=== PATIENT | female | born 2005 | race Caucasian/White ===

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

== ENCOUNTER → 2024-06-16 10:27 | Outpatient (BNVA) | payer MEDICAID, SELFPAY | PROVIDERS: PCP Nurse Practitioner Family; Visit Provider Nurse Practitioner Family | DX: R50.9 Fever, unspecified (principal) | CPT/HCPCS: 87426 ==

== ENCOUNTER 2024-09-24 11:47 | Emergency (ER) | payer BC, MEDICAID, SELFPAY ==
--- NOTE | 2024-09-24 11:48 | XR_ITS ---
WS: [id number] Exam: XR chest 1V portable [id number] Date/Time of Exam: 09/24/2024 1:06 PM Reason For Exam: cp No priors. Lungs are clear. Normal cardiomediastinal silhouette and regional bony elements. No pleural effusion. XR/XR chest 1V portable [id number] IMPRESSION: 1. Normal chest.
--- NOTE | 2024-09-24 12:11 | ECG_ITS ---
[facility] Test Date: 2024-09-24 Pat Name: Anni Buchanan [facility] Department: Room: Gender: Female [employer]: : 2005 Requested By: Doron Cuadra Order Number: [id number] Caitlyn MD: Terry Day M.D. Measurements Intervals [place] Rate: 71 P: 82 MN: 135 QRS: 91 QRSD: 85 T: 64 QT: 379 QTc: 413 Interpretive Statements SINUS RHYTHM BORDERLINE RIGHT AXIS DEVIATION [QRS AXIS > 90] NONSPECIFIC T-WAVE ABNORMALITY No previous ECG available for comparison Electronically Signed On 09-24-2024 21:57:05 NURSE COMPANION by Terry Day M.D. [id number]
[2024-09-24 12:17] VITALS: BP 104/70; PULSE 77; RESP 18; TEMP 36.8; O2SAT 99; BMI 18.8
--- NOTE | 2024-09-24 12:55 | ECG_ITS ---
[facility] Date: 2024-09-24 Pat Name: Anni Buchanan [facility] Department: Room: Gender: Female [employer] Winder: : 2005 Requested By: Doron Cuadra Order Number: [id number] Reading MD: Terry Day M.D. Measurements Intervals [place] Rate: 71 P: 82 MD: 135 QRS: 91 QRSD: 85 T: 64 QT: 379 QTc: 413 Interpretive Statements SINUS RHYTHM BORDERLINE RIGHT AXIS DEVIATION [QRS AXIS > 90] NONSPECIFIC T-WAVE ABNORMALITY No previous ECG available for comparison Electronically Signed On 09-24-2024 21:57:00 INTEGRITY SPECIALIST by Terry Day M.D. [id number]
[2024-09-24 12:56] VITALS: BP 112/70; PULSE 75; O2SAT 99
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
[2024-09-24] MEDS: morphine 4 mg/mL SDV 1 mL IVP (13:16)
[2024-09-24] MEDS: lidocaine 2% viscous 15 ML, aluminum-mag hydrox-simethicon 30 ML, sucralfate oral liq 1 GM PO (13:16)
[2024-09-24] MEDS: ondansetron 2 mg/ML SDV 2 mL 4 MG IVP (13:16)
[2024-09-24 13:32] LABS: Basophils % 0.6 %; Eosinophils # 0.2 10^3/uL (0.0-0.8); Eosinophils % 4.1 %; Hematocrit 40.5 % (36-47); Lymphocytes # 1.7 10^3/uL (1.5-6.5); Lymphocytes % 31.5 %; Mean Corpuscular HGB Conc 32.8 g/dL (30-55); Mean Corpuscular Hemoglobin 30.1 pg (27-33); Mean Corpuscular Volume 91.6 fl (85-98); Mean Platelet Volume 11.1 fL (7.4-10.4); Monocytes # 0.6 10^3/uL (0.2-0.9); Monocytes % 10.7 %; Neutrophils # 2.87 10^3/uL (1.8-8.0); Neutrophils % 52.7 %; Nucleated Red Blood Cells % 0 %; Platelet Count 205 10^3/cmm (157-399); Red Blood Count 4.42 10^6/uL (3.85-5.65); Red Cell Distribution Width 12.8 % (12.1-15.1); White Blood Count 5.43 10^3/uL (4.5-13.0)
[2024-09-24 13:47] LABS: INR 1.04 (0.8-1.2)
[2024-09-24 13:48] LABS: HCG, Serum Qual Negative (Negative)
[2024-09-24 13:50] LABS: D Dimer 0.29 ug/mLFEU (0-0.59)
[2024-09-24 13:53] LABS: Alanine Aminotransferase 22 U/L (0-33); Albumin Level 4.4 g/dL (3.5-5.2); Alkaline Phosphatase 96 U/L (35-105); Anion Gap 16.7 (5-19); Aspartate Amino Transferase 17 U/L (0-32); Blood Urea Nitrogen 13 mg/dL (6-20); Calcium 9.1 mg/dL (8.5-10.5); Carbon Dioxide 20 mmol/L (22-29); Chloride 105 mmol/L (98-107); Creatinine Clr Calc Pharmacy 124.6147; Glomerular Filtration Rate 127.5 mL/min (90-130); Glucose 119 mg/dL (65-115); Lipase 94 U/L (13-60); Osmolality Calculated 287 mOsm/kg (285-295); Potassium 3.7 mmol/L (3.5-5.1); Sodium 138 mmol/L (136-145); Total Bilirubin 0.2 mg/dL (0.15-1.2); Total Protein 6.4 g/dL (6.6-8.7)
[2024-09-24 13:55] LABS: Troponin(5th) Baseline < 6 ng/L (0-10)
[2024-09-24 14:15] VITALS: BP 127/60; PULSE 71; O2SAT 97
== END 2024-09-24 14:20 | disposition home or self-care (01) ==
PROVIDERS: Emergency Provider Emergency Medicine; PCP Nurse Practitioner Family
DX: R07.9 Chest pain, unspecified (principal)
CPT/HCPCS: 71045; 80053; 83690; 84484; 84703; 85025; 85378; 85610; 93005; 96374; 96375; 99285; J2270; J2405

== ENCOUNTER 2025-04-18 15:06 | Outpatient (CLI) | payer BC, MEDICAID, SELFPAY ==
--- NOTE | 2025-04-18 15:30 | USR_ITS ---
PROCEDURE INFORMATION: Exam: US Right Limited Joint or Other Non-Vascular Extremity Structure Exam date and time: 04/18/2025 3:16 PM Age: 19 years old Clinical indication: Other: - enlarged lymph node; Additional info: R59.9 - enlarged lymph nodes, unspecified TECHNIQUE: Imaging protocol: US right limited joint or other nonvascular extremity structure. Real-time ultrasound with image documentation. Exam focused on the area of clinical interest. COMPARISON: US OB >= 14 weeks fetus [id number] 03/16/2024 9:38 AM FINDINGS: Soft tissues: There are clustered lymph nodes in the inguinal regions bilaterally measuring up to 9 mm short axis on the right and 11 mm on the left. Lymph nodes demonstrate subtle increased central echogenicity related to central fatty federico and there is marked central vascularity. There is no fluid collection in the soft tissues. US/US soft tissue/extremity [id number] IMPRESSION: Mild bilateral inguinal lymph node enlargement is nonspecific. Findings may be reactive or neoplastic.
== END 2025-04-18 15:07 | disposition home or self-care (01) ==
LOC: RAD 15:09
PROVIDERS: PCP Nurse Practitioner Family; Visit Provider Nurse Practitioner Family
DX: R59.9 Enlarged lymph nodes, unspecified (principal); R10.31 Right lower quadrant pain; R10.32 Left lower quadrant pain
CPT/HCPCS: 76882

== ENCOUNTER 2025-05-12 08:35 | Oncology outpatient (recurring) (ONCR) | payer BC, MEDICAID, SELFPAY ==
[2025-05-12 09:47] LABS: Hematocrit 39.0 % (36-47); Hemoglobin 13.00 g/dL (12.4-14.8); Mean Corpuscular HGB Conc 33.3 g/dL (30-55); Mean Corpuscular Hemoglobin 31.3 pg (27-33); Mean Corpuscular Volume 93.8 fl (85-98); Nucleated Red Blood Cells % 0 %; Platelet Count 182 10^3/cmm (157-399); Red Blood Count 4.16 10^6/uL (3.85-5.65); White Blood Count 6.26 10^3/uL (4.5-13.0)
[2025-05-12 09:50] LABS: Glucose Urine UA Negative (Normal); Nitrate Urine Negative (Negative); Specific Gravity, Urine 1.022 (1.005-1.030)
[2025-05-12 10:25] LABS: Alanine Aminotransferase 60 U/L (0-33); Albumin Level 4.5 g/dL (3.5-5.2); Alkaline Phosphatase 88 U/L (35-105); Anion Gap 12.6 (5-19); Aspartate Amino Transferase 26 U/L (0-32); Blood Urea Nitrogen 6 mg/dL (6-20); Calcium 8.9 mg/dL (8.5-10.5); Carbon Dioxide 26 mmol/L (22-29); Chloride 104 mmol/L (98-107); Cholesterol 110 mg/dL (0-200); Creatinine Clr Calc Pharmacy 147.4818; Globulin 2.6 g/dL (1.3-4.6); Glucose 88 mg/dL (65-115); HDL Cholesterol 43 mg/dL (60-100); Osmolality Calculated 285 mOsm/kg (285-295); Potassium 3.6 mmol/L (3.5-5.1); Sodium 139 mmol/L (136-145); Thyroid Stimulating Hormone 0.95 uIU/mL (0.27-4.20); Total Protein 7.1 g/dL (6.6-8.7); Triglycerides 46 mg/dL (0-150); Uric Acid 3.6 mg/dL (2.4-5.7)
== END 2025-05-12 23:59 | disposition home or self-care (01) ==
PROVIDERS: PCP Nurse Practitioner Family; Visit Provider Internal Medicine
DX: R10.31 Right lower quadrant pain (principal); R10.32 Left lower quadrant pain; R59.0 Localized enlarged lymph nodes
CPT/HCPCS: 36415; 80053; 80061; 81001; 82306; 83615; 84443; 84550; 85025

== ENCOUNTER → 2025-07-06 11:07 | Outpatient (BNVA) | payer BC, MEDICAID, SELFPAY | PROVIDERS: PCP Nurse Practitioner Family; Visit Provider Nurse Practitioner Family | DX: N92.6 Irregular menstruation, unspecified (principal); R59.1 Generalized enlarged lymph nodes | CPT/HCPCS: 80053; 81025; 83615; 84550; 85025 ==

== ENCOUNTER 2025-08-09 10:19 | Oncology outpatient (recurring) (ONCR) | payer BC, MEDICAID, SELFPAY ==
--- NOTE | 2025-08-09 10:15 | US_ITS ---
WS: [id number] Complete ABDOMINAL ULTRASOUND HISTORY: R10.9 - Unspecified abdominal pain COMPARISON: None available. Liver: 13.6 cm in length. Normal size liver and echogenicity. No bile duct dilatation or mass. Portal Vein: Normal hepatopetal flow with monophasic waveform. Gallbladder: Normally distended gallbladder with no stones or wall thickening. CBD: 0.3 cm Pancreas: Normal size and echogenicity. Right kidney: 10.1 cm x 3.9 x 4.6 cm. Cortex:1.2 cm. Normal size and echogenicity. No hydronephrosis or mass. Left kidney: 9.7 cm x 4.6 cm x 5.7 cm. Cortex: 1.2 cm. Normal size and echogenicity. No hydronephrosis or mass. Spleen: 9.5 cm. Normal size and echogenicity. Aorta and IVC: Unremarkable abdominal aorta and IVC. US/US abdomen complete* [id number] Impression: Normal complete abdomen ultrasound.
== END 2025-08-12 23:59 | disposition home or self-care (01) ==
LOC: ONCMED 10:20 → RAD 08-10
PROVIDERS: PCP Nurse Practitioner Family; Visit Provider Internal Medicine
DX: R10.9 Unspecified abdominal pain (principal); R74.8 Abnormal levels of other serum enzymes
CPT/HCPCS: 36415; 76700; 83615